=== PATIENT | male | born 1955 | race Two or more races ===

== ENCOUNTER → 2024-11-09 | Outpatient (CLI) | payer MEDICARE, MEDICAID, SELFPAY ==
--- NOTE | 2024-11-09 07:30 | XR_ITS ---
Examination: CT chest, without intravenous contrast. Sagittal and coronal 2-D reconstructions. Exam date and time: November 09, 2024 0758 hours Comparison March 16, 2023 INDICATIONS: 3 mm pulmonary nodule left lower lobe on CT chest March 16, 2023 CTDI:vol (mGy) 14 DLP: (mGycm) 544 Technique: Multiple 3.0 mm axial sections of the chest to been obtained. Bone and lung density settings are obtained. Sagittal and coronal 2-D reconstructions have been obtained. Low dose protocols were performed. One or more of the following dose reduction techniques were used; automated exposure control, adjustment of the mA and/or KV according to patient size, use of iterative reconstruction technique. Findings: No thoracic aortic aneurysmal dilatation Pulmonary artery segments are not enlarged No paratracheal tracheobronchial or bronchopulmonary adenopathy Stable 3 mm pulmonary nodule left lower lobe No new pulmonary nodules No pneumonia or pulmonary edema Diffuse fatty liver No gallstones Bilateral renal cysts including 4 cm upper pole right renal cyst with calcium in the wall of the cyst IMPRESSION: Stable 3 mm pulmonary nodule left lower lobe, no new pulmonary nodules
== END | disposition home or self-care (01) ==
LOC: CCTX 07:33
PROVIDERS: PCP Nurse Practitioner Family; Referring Provider Nurse Practitioner Family; Visit Provider Nurse Practitioner Family
DX: R91.1 Solitary pulmonary nodule (principal)
CPT/HCPCS: 71250